=== PATIENT | female | born 1935 | race Caucasian/White ===

== ENCOUNTER 2016-09-09 11:03 | Outpatient (CLI) | payer MEDICARE | END 2016-09-09 11:04 | disposition home or self-care (01) | DX: G25.89 Other specified extrapyramidal and movement disorders (principal) ==

== ENCOUNTER 2016-12-03 11:36 | Outpatient (CLI) | payer MEDICARE ==
--- NOTE | 2016-12-04 12:42 | XRAY Report ---
AP PELVIS AND FROGLEG LATERAL VIEW OF THE RIGHT HIP: 12/03/2016 CLINICAL HISTORY: Right hip joint pain. COMPARISON: 02/06/2015 FINDINGS: Hips show no significant narrowing. No significant change is detected as compared to 01/18. A tiny spur is seen emanating from the lateral aspect of the right femoral head. This is no t increased in size as compared to preceding exam. Minor chondrocalcinosis is noted in the articular cartilage of the hips that most likely is related to normal aging process. SI joints are normal. 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 There is a suggestion on AP projecti on of a moderate degree of disk space narrowing at this level. IMPRESSION: 1. NO SIGNIFICANT CHANGE IS NOTED COMPARED TO 02/06/2015. 2. HIPS AND SI JOINTS APPEAR NORMAL. 3. OSTEOARTHRITIS IS SEEN IN THE FACET JOINTS AT L4-5, ESPECIALLY THE RIGHT FACET JOINT. THERE IS A SUGGESTION OF ASSOCIATED DEGENERATIVE DISK DISEASE AT THIS LEVEL. JOB #: [id number] EXT JOB #:[id number]
== END 2016-12-03 11:37 | disposition home or self-care (01) ==
LOC: DI 11:36
PROVIDERS: ATTEND Internal Medicine
DX: M25.551 Pain in right hip (principal)

== ENCOUNTER 2016-12-11 14:45 | Outpatient (CLI) | payer MEDICARE ==
[2016-12-11 19:07] LABS: CALCIUM 9.1 mg/dL (8.5-10.3); CREATININE 0.9 mg/dL (0.4-1.0)
== END 2016-12-11 14:46 | disposition home or self-care (01) ==
LOC: LAB.N 14:45
PROVIDERS: ATTEND Internal Medicine
DX: I10 Essential (primary) hypertension (principal)
CPT/HCPCS: 36415; 80048

== ENCOUNTER 2017-05-22 08:19 | Outpatient (CLI) | payer MEDICARE ==
[2017-05-22 19:11] LABS: EOSINOPHILS # (AUTO) 0.1 10^3/uL (0.0-0.7); EOSINOPHILS % (AUTO) 4.3 %; HGB - HEMOGLOBIN 11.8 g/dL (12.0-16.0); LYMPHOCYTES # (AUTO) 1.1 10^3/uL (1.5-3.5); LYMPHOCYTES % (AUTO) 33.2 %; MEAN CORPUSCULAR HEMOGLOBIN 30.7 pg (27.0-31.0); MEAN CORPUSCULAR HGB CONC 33.3 g/dL (32.0-36.0); MEAN CORPUSCULAR VOLUME 92.1 fL (81.0-99.0); MEAN PLATELET VOLUME 8.8 fL (7.9-10.8); MONOCYTES # (AUTO) 0.3 10^3/uL (0.0-1.0); MONOCYTES % (AUTO) 8.3 %; NEUTROPHILS # (AUTO) 1.8 10^3/uL (1.5-6.6); NEUTROPHILS % (AUTO) 53.2 %; PLT - PLATELET COUNT 208 10^3/uL (130-450); RED BLOOD COUNT 3.83 10^6/uL (4.20-5.40); RED CELL DISTRIBUTION WIDTH 15.1 % (12.0-15.0); WHITE BLOOD COUNT 3.3 x10^3/uL (4.8-10.8)
[2017-05-22 19:34] LABS: ALBUMIN 4.3 g/dL (3.2-5.5); ALBUMIN/GLOBULIN RATIO 1.6 (1.0-2.2); BILIRUBIN,TOTAL 0.9 mg/dL (0.2-1.0); CALCIUM 9.5 mg/dL (8.5-10.3); CREATININE 0.7 mg/dL (0.4-1.0)
== END 2017-05-22 08:20 ==
LOC: LAB.N 08:19
PROVIDERS: ATTEND Internal Medicine
DX: E04.9 Nontoxic goiter, unspecified (principal); I10 Essential (primary) hypertension; Z79.899 Other long term (current) drug therapy
CPT/HCPCS: 36415; 80053; 84443; 85025

== ENCOUNTER 2017-11-17 11:54 | Outpatient (CLI) | payer MEDICARE | END 2017-11-17 11:55 | disposition home or self-care (01) | LOC: LAB.N 11:54 | PROVIDERS: ATTEND Internal Medicine | DX: E04.9 Nontoxic goiter, unspecified (principal) | CPT/HCPCS: 36415; 84443 ==

== ENCOUNTER 2018-02-16 13:15 | Outpatient (CLI) | payer MEDICARE ==
--- NOTE | 2018-02-16 15:54 | Ultrasound Report ---
Reason: LIPODERMATOSCLEROSIS Procedure Date: 02/16/2018 Accession Number: [id number] / [id number] Procedure: US - Duplex Ext Veins Right CPT Code: FULL RESULT: EXAM: RIGHT LOWER EXTREMITY VENOUS ULTRASOUND. EXAM DATE: 02/16/2018 02:52 PM. CLINICAL HISTORY: Lipodermatosclerosis. COMPARISON: None. TECHNIQUE: Real-time sonographic vascular imaging was performed by the controls designer through the lower extremity utilizing both color-flow and Doppler spectral analysis. Multiple claim service representative static images were saved for review. FINDINGS: Common Femoral Vein (CFV): Normal. CFV-GSV Junction: Normal. Profunda Femoral Vein (PFV): Normal. Femoral Vein (FV) Prox: Normal. Femoral Vein (FV) Mid: Normal. Femoral Vein (FV) Dist: Normal. Popliteal Vein: Normal. Posterior Tibial Veins: Normal. Peroneal Veins: Normal. Contralateral Side CFV: Normal. Other: None. IMPRESSION: No evidence for deep venous thrombosis. [facility]
== END 2018-02-16 13:16 | disposition home or self-care (01) ==
LOC: DI 13:15
PROVIDERS: ATTEND Internal Medicine
DX: I83.10 Varicose veins of unspecified lower extremity with inflammation (principal)

== ENCOUNTER 2018-02-20 14:11 | Outpatient (CLI) | payer MEDICARE | END 2018-02-20 14:12 | disposition home or self-care (01) | LOC: LAB.WCP 14:11 | PROVIDERS: ATTEND Internal Medicine | DX: E04.9 Nontoxic goiter, unspecified (principal) | CPT/HCPCS: 36415; 84443 ==

== ENCOUNTER 2018-05-28 14:00 | Outpatient (CLI) | payer MEDICARE | END 2018-05-28 23:59 | disposition home or self-care (01) | LOC: LAB.N 14:00 | PROVIDERS: ATTEND Internal Medicine | DX: Z79.899 Other long term (current) drug therapy (principal) | CPT/HCPCS: 36415; 84443 ==

== ENCOUNTER 2018-07-13 08:09 | Outpatient (CLI) | payer MEDICARE | END 2018-07-13 23:59 | disposition home or self-care (01) | LOC: LAB.N 08:09 | PROVIDERS: ATTEND Internal Medicine | DX: E04.9 Nontoxic goiter, unspecified (principal) | CPT/HCPCS: 36415; 84443 ==

== ENCOUNTER 2023-12-22 08:15 | Outpatient (CLI) | payer MEDICARE, BC ==
--- NOTE | 2023-12-22 10:34 | XRAY Report ---
PROCEDURE: Chest 2V INDICATIONS: ACUTE COUGH TECHNIQUE: 2 views of the chest were acquired. COMPARISON: 04/23/2016 FINDINGS: Surgical changes and devices: None. Lungs and pleura: No pleural effusions or pneumothorax. Lungs are clear. Biapical scarring. Peribro nchial cuffing. Mediastinum: Mediastinal contours appear normal. Heart size is normal. Bones and chest wall: No suspicious bony lesions. Overlying soft tissues appear unremarkable. IMPRESSION: Peribronchial cuffing, suggestive of infectious or inflammatory bronchitis. Reviewed by: Bear Arauz MD on 12/22/2023 10:33 AM PDT Approved by: Bear Arauz MD on 12/22/2023 10:33 AM PDT Station ID: [id number]
== END 2023-12-22 08:30 | disposition home or self-care (01) ==
LOC: DI.N 08:15
PROVIDERS: ATTEND Physician Assistant Medical
DX: R91.8 Other nonspecific abnormal finding of lung field (principal)